=== PATIENT | female | born 1960 | race Caucasian/White ===

== ENCOUNTER 2018-05-11 23:23 | Emergency (ER) | payer OTHER ==
[~2018-05-11] VITALS: Ht 167.6 cm; Wt 61.2 kg
[2018-05-12 00:15] LABS: BILIRUBIN,URINE NEGATIVE (NEG); CLARITY,URINE CLEAR; COLOR,URINE YELLOW; NITRITE,URINE NEGATIVE (NEG); PH,URINE 5.5; PROTEIN,URINE NEGATIVE (NEG-TRACE); UROBILINOGEN,URINE 0.2 mg/dL (0.2 mg/dL)
[2018-05-12 00:22] LABS: BACTERIA,URINE FEW /HPF (0-FEW); RBC,URINE RARE /HPF (0-2); SQUAMOUS EPITHELIAL CELL,UR FEW /LPF
[2018-05-12 00:31] LABS: INFLUENZA A PATIENT NEGATIVE (NEGATIVE); INFLUENZA B PATIENT NEGATIVE (NEGATIVE)
[2018-05-12] MEDS ORDERED: KETOROLAC 15 MG/ML VIAL. IV ONE (01:15)
[2018-05-12] MEDS ORDERED: FAMOTIDINE 20 MG/2 ML VIAL IVP ONE (01:15)
[2018-05-12] MEDS ORDERED: ONDANSETRON PF 4 MG/2 ML VIAL. IV ONE (01:15)
[2018-05-12 01:19] LABS: BASO # 0.1 x10^3/uL (0.0-0.2); BASO % 1 % (0-3); EOS # 0.2 x10^3/uL (0.0-0.7); EOS % 2 % (0-3); HEMATOCRIT 40.7 % (36.0-47.0); HEMOGLOBIN 13.7 g/dL (12.0-15.5); LYMPH # 3.6 x10^3/uL (1.0-4.8); LYMPH % 34 % (24-48); MEAN CORPUSCULAR HEMOGLOBIN 32 pg (25-35); MEAN CORPUSCULAR HGB CONC 34 g/dL (31-37); MEAN CORPUSCULAR VOLUME 94 fL (79-100); MONO # 0.7 x10^3/uL (0.0-1.1); MONO % 7 % (0-9); NEUT % 57 % (31-73); PLATELET COUNT 258 x10^3/uL (140-400); RED BLOOD COUNT 4.34 x10^6/uL (3.50-5.40); RED CELL DISTRIBUTION WIDTH 14.1 % (11.5-14.5); WHITE BLOOD COUNT 10.6 x10^3/uL (4.0-11.0)
[2018-05-12 01:27] LABS: CALCIUM 9.4 mg/dL (8.5-10.1); CREATININE 0.6 mg/dL (0.6-1.0); GFR 102.7; POTASSIUM 4.3 mmol/L (3.5-5.1)
[2018-05-12 01:28] LABS: MONONUCLEOSIS PATIENT NEGATIVE (NEGATIVE)
[2018-05-12] MEDS ORDERED: IV NORMAL SALINE 1000ML BAG 1,000 ML IV ONE (01:30)
[2018-05-12 01:32] LABS: ALBUMIN 3.4 g/dL (3.4-5.0); ALBUMIN/GLOBULIN RATIO 0.9 (1.0-1.7); MAGNESIUM 2.2 mg/dL (1.8-2.4); TOTAL BILIRUBIN 0.2 mg/dL (0.2-1.0); TOTAL PROTEIN 7.4 g/dL (6.4-8.2)
[2018-05-12] MEDS ORDERED: CONTRAST GIVEN. MC PRN (01:45)
[2018-05-12 01:54] VITALS: BP 158/70
[2018-05-12] MEDS ORDERED: IOHEXOL 300 MG/ML 100ML VIAL. IV ONE (02:00)
--- NOTE | 2018-05-12 02:06 | RAD ---
CT SCAN OF THE ABDOMEN AND PELVIS WITH IV CONTRAST. History: Right upper quadrant pain Comparison:None. Procedure: Contiguous axial images of the abdomen and pelvis were performed after the administration of 75 cc of Omni 300 IV contrast and without oral contrast. CT Abdomen with contrast: Findings: Liver: Unremarkable Spleen: Unremarkable Pancreas: Unremarkable Adrenal Glands: Unremarkable Kidneys: Unremarkable There is no mass or lymphadenopathy. There is no free air. There is no free fluid. Impression: No acute findings. End Impression CT Pelvis with Contrast: Findings: The appendix isn't well seen. The urinary bladder appears normal. There is no free fluid. There is no lymphadenopathy. Impression: No acute findings. PQRS Compliance Statement: One or more of the following individualized dose reduction techniques were utilized for this examination: 1. Automated exposure control 2. Adjustment of the mA and/or kV according to patient size 3. Use of iterative reconstruction technique Electronically signed by: Pedro Coelho III, MD (05/12/2018 2:03 AM) [facility]
--- NOTE | 2018-05-12 02:24 | PHYS DOC ---
Past Medical History Past Medical History: COPD, High Cholesterol, Other Additional Past Medical Histor: emphysema Past Surgical History: Appendectomy, Oophorectomy Additional Past Surgical Histo: plastic, OVARIAN CYSTS Smoking: Cigarettes, 1 Pack Per Day Alcohol Use: None Drug Use: None Adult General Chief Complaint Chief Complaint: MULTIPLE COMPLAINTS HPI HPI Patient is a 57 year old female who presents complaining of a sore throat, body aches, generalized weakness, a headache, nonproductive cough, shortness of breath on exertion, and a fever for the past one week. Patient reports nonbloody , nonbilious vomiting for the past two days as well as a decreased appetite. Patient reports taking Carlyn [place] without relief. Patient states that she has not gotten out of bed much over the past one week which she thinks is making her symptoms worse. Patient reports a maximum temperature of 101. Patient states that she developed midsternal chest pain that radiated to the right side of her chest around five o'clock this evening. Patient states that the pain radiated to her right elbow and lasted about thirty seconds before it subsided. Patient received the influenza vaccine this year. Denies diarrhea. Review of Systems Review of Systems Constitutional: Denies weight loss and sweating. Eyes: Denies change in visual acuity, or eye pain. HENT: Denies ear drainage and nasal discharge. Respiratory: Reports cough and shortness of breath. Cardiovascular: Denies palpitations. Reports chest pain. GI: Denies hematemesis. Denies bloody stools. : Denies dysuria or hematuria. Musculoskeletal: Reports back pain. Denies joint pain. Integument: Denies rash or skin lesions. Neurologic: Denies focal weakness or sensory changes. Complete systems were reviewed and found to be within normal limits, except as documented in this note. Current Medications Current Medications Current Medications Medications (Trade) Dose Ordered Sig/Angelito Start Time Stop Time Status Last Admin Dose Admin Famotidine (Pepcid Vial) 20 mg 1X ONCE 05/12/18 01:15 05/12/18 01:16 DC 05/12/18 01:15 20 MG Info (CONTRAST GIVEN -- Rx MONITORING) 1 each PRN DAILY PRN 05/12/18 01:45 05/14/18 01:44 Iohexol (Omnipaque 300 Mg/ml) 75 ml 1X ONCE 05/12/18 02:00 05/12/18 02:01 DC 05/12/18 01:46 75 ML Ketorolac Tromethamine (Toradol 15mg Vial) 15 mg 1X ONCE 05/12/18 01:15 05/12/18 01:16 DC 05/12/18 01:15 15 MG Ondansetron HCl (Zofran) 4 mg 1X ONCE 05/12/18 01:15 05/12/18 01:16 DC 05/12/18 01:15 4 MG Sodium Chloride 1,000 ml @ 1,000 mls/hr 1X ONCE 05/12/18 01:30 05/12/18 02:29 DC 05/12/18 01:24 1,000 MLS/HR Allergies Allergies Allergies Coded Allergies Type Severity Reaction Last Updated Verified No Known Drug Allergies 03/07/13 No Physical Exam Physical Exam Constitutional: Well developed, well nourished, no acute distress, non-toxic appearance. HENT: Normocephalic, atraumatic, bilateral TMs visualized. Pharyngeal erythema without exudate. Right maxillary sinus tenderness on palpation. Eyes: PERRL, EOMI, conjunctiva normal. Neck: Normal range of motion, no tenderness, supple. Cardiovascular:Heart rate regular rhythm, no murmur. Lungs & Thorax: Decreased breath sounds bilaterally. No rhonchi, wheezing, or rales. Abdomen: Soft. Tenderness of right upper quadrant on palpation. No rebound or guarding. Skin: Warm, dry, no rash. Back: Bilateral lumbar paraspinal tenderness on palpation. No midline tenderness. Extremities: ROM intact, no edema. Tenderness of right lower extremity on palpation which is chronic, per patient. Neurologic: Alert and oriented X 3, normal motor function, normal sensory function, no focal deficits noted. Psychologic: Affect normal. Speech normal. Current Patient Data Vital Signs Vital Signs Date Time Temp Pulse Resp B/P (MAP) Pulse Ox O2 Delivery O2 Flow Rate FiO2 05/12/18 01:54 80 20 158/70 (99) 98 Room Air 05/11/18 23:46 97.8 97.8 Lab Values Laboratory Tests Test 05/11/18 23:50 05/12/18 01:12 Urine Collection Type Unknown Urine Color Yellow Urine Clarity Clear Urine pH 5.5 Urine Specific [place] <=1.005 Urine Protein Negative mg/dL (NEG-TRACE) Urine Glucose (UA) Negative mg/dL (NEG) Urine Ketones (Stick) Negative mg/dL (NEG) Urine Blood Small (NEG) Urine Nitrite Negative (NEG) Urine Bilirubin Negative (NEG) Urine Urobilinogen Dipstick 0.2 mg/dL (0.2 mg/dL) Urine Leukocyte Esterase Small (NEG) Urine RBC Rare /HPF (0-2) Urine WBC 5-10 /HPF (0-4) Urine Squamous Epithelial Cells Few /LPF Urine Bacteria Few /HPF (0-FEW) Influenza Type A Antigen Negative (NEGATIVE) Influenza Type B Antigen Negative (NEGATIVE) White Blood Count 10.6 x10^3/uL (4.0-11.0) Red Blood Count 4.34 x10^6/uL (3.50-5.40) Hemoglobin 13.7 g/dL (12.0-15.5) Hematocrit 40.7 % (36.0-47.0) Mean Corpuscular Volume 94 fL (79-100) Mean Corpuscular Hemoglobin 32 pg (25-35) Mean Corpuscular Hemoglobin Concent 34 g/dL (31-37) Red Cell Distribution Width 14.1 % (11.5-14.5) Platelet Count 258 x10^3/uL (140-400) Neutrophils (%) (Auto) 57 % (31-73) Lymphocytes (%) (Auto) 34 % (24-48) Monocytes (%) (Auto) 7 % (0-9) Eosinophils (%) (Auto) 2 % (0-3) Basophils (%) (Auto) 1 % (0-3) Neutrophils # (Auto) 6.0 x10^3uL (1.8-7.7) Lymphocytes # (Auto) 3.6 x10^3/uL (1.0-4.8) Monocytes # (Auto) 0.7 x10^3/uL (0.0-1.1) Eosinophils # (Auto) 0.2 x10^3/uL (0.0-0.7) Basophils # (Auto) 0.1 x10^3/uL (0.0-0.2) Sodium Level 137 mmol/L (136-145) Potassium Level 4.3 mmol/L (3.5-5.1) Chloride Level 102 mmol/L (98-107) Carbon Dioxide Level 25 mmol/L (21-32) Anion Gap 10 (6-14) Blood Urea Nitrogen 12 mg/dL (7-20) Creatinine 0.6 mg/dL (0.6-1.0) Estimated GFR (Cockcroft-Gault) 102.7 BUN/Creatinine Ratio 20 (6-20) Glucose Level 101 mg/dL (70-99) H Calcium Level 9.4 mg/dL (8.5-10.1) Magnesium Level 2.2 mg/dL (1.8-2.4) Total Bilirubin 0.2 mg/dL (0.2-1.0) Aspartate Amino Transferase (AST) 23 U/L (15-37) Alanine Aminotransferase (ALT) 23 U/L (14-59) Alkaline Phosphatase 66 U/L (46-116) Total Protein 7.4 g/dL (6.4-8.2) Albumin 3.4 g/dL (3.4-5.0) Albumin/Globulin Ratio 0.9 (1.0-1.7) L Lipase 156 U/L (73-393) Heterophil Agglutinins Negative (NEGATIVE) Laboratory Tests 05/12/18 01:12 Laboratory Tests 05/12/18 01:12 EKG EKG [] Radiology/Procedures Radiology/Procedures [] Impressions: PROCEDURE: CT ABD PELV W/ IV CONTRST ONLY CT SCAN OF THE ABDOMEN AND PELVIS WITH IV CONTRAST. History: Right upper quadrant pain Comparison:None. Procedure: Contiguous axial images of the abdomen and pelvis were performed after the administration of 75 cc of Omni 300 IV contrast and without oral contrast. CT Abdomen with contrast: Findings: Liver: Unremarkable Spleen: Unremarkable Pancreas: Unremarkable Adrenal Glands: Unremarkable Kidneys: Unremarkable There is no mass or lymphadenopathy. There is no free air. There is no free fluid. Impression: No acute findings. End Impression CT Pelvis with Contrast: Findings: The appendix isn't well seen. The urinary bladder appears normal. There is no free fluid. There is no lymphadenopathy. Impression: No acute findings. PQRS Compliance Statement: One or more of the following individualized dose reduction techniques were utilized for this examination: 1. Automated exposure control 2. Adjustment of the mA and/or kV according to patient size 3. Use of iterative reconstruction technique Electronically signed by: Pedro Coelho III, MD (05/12/2018 2:03 AM) [id number] Course & Med Decision Making Course & Med Decision Making Pertinent Labs and Imaging studies reviewed. (See chart for details) Patient presented to the ED with multiple complaints including a sore throat, fever, vomiting, body aches, generalized weakness, chest pain, shortness of breath, a headache. Dragon Disclaimer Dragon Disclaimer This electronic medical record was generated, in whole or in part, using a voice recognition dictation system. Departure Departure Impression: Primary Impression: Viral syndrome Additional Impressions: Pharyngitis Nausea & vomiting Abdominal pain Disposition: 01 HOME, SELF-CARE Condition: STABLE Referrals: LILLIE COPELAND MD (PCP) Patient Instructions: Nausea and Vomiting, [id number], Viral Syndrome, Viral and Bacterial Pharyngitis, [id number] Scripts Famotidine (PEPCID) 20 Mg Tablet 20 MG PO BID for 14 Days, #28 TAB Prov: CHAY DOYLE DO 05/12/18 Ondansetron (ONDANSETRON ODT) 4 Mg Tab.rapdis 1 TAB PO PRN Q6-8HRS for VOMITING, #16 TAB Prov: CHAY DOYLE DO 05/12/18 Problem Qualifiers Additional Impressions: Pharyngitis Pharyngitis/tonsillitis etiology: unspecified etiology Qualified Codes: J02.9 - Acute pharyngitis, unspecified Nausea & vomiting Vomiting type: unspecified Vomiting Intractability: non-intractable Qualified Codes: R11.2 - Nausea with vomiting, unspecified Abdominal pain Abdominal location: unspecified location Qualified Codes: R10.9 - Unspecified abdominal pain CHAY DOYLE DO May 12, 2018 02:23
[2018-05-12] MEDS ORDERED: FAMO-63 PO (03:04)
[2018-05-12] MEDS ORDERED: ONDA4TAB12 PO (03:04)
== END 2018-05-12 03:07 | disposition home or self-care (01) ==
LOC: ER 23:23
DX: B34.9 Viral infection, unspecified (principal); R11.2 Nausea with vomiting, unspecified; R10.11 Right upper quadrant pain; J44.9 Chronic obstructive pulmonary disease, unspecified; E78.00 Pure hypercholesterolemia, unspecified; F17.210 Nicotine dependence, cigarettes, uncomplicated; Z90.89 Acquired absence of other organs; Z90.721 Acquired absence of ovaries, unilateral
CPT/HCPCS: 36415; 74177; 80053; 81001; 83690; 83735; 85025; 86308; 87070; 87086; 87804; 87880; 96361; 96374; 96375; 99284; J1885; J2405; J3490; J7030; Q9967

== ENCOUNTER → 2018-06-02 | Outpatient (CLI) | payer OTHER ==
[2018-05-12 01:54] VITALS: BP 158/70
[~2018-06-02] MED LIST: FAMO-63 PO; ONDA4TAB12 PO
--- NOTE | 2018-06-02 16:31 | RAD ---
Clinical indications: Carotidynia. Left ear pain. Hypertension. History of smoking. Duplex sonography of the cervical portion of both carotid arteries was performed including color flow imaging and spectral waveform analysis with flow velocity measurement and lamb scale evaluation. Right side: Peak systolic flow velocity of the CCA is 72 cm/sec. Peak systolic flow velocity of the ICA is 113 cm/sec. Thus, the ICA/CCA ratio is 1.4. Peak end diastolic flow velocity of the ICA is 36 cm/sec. The peak systolic velocity of the ECA is 193 cm/sec. Left side: Peak systolic flow velocity of the CCA is 79 cm/sec. Peak systolic flow velocity of the ICA is 112 cm/sec. Thus, the ICA/CCA ratio is 1.4. Peak end diastolic flow velocity of the ICA is 42 cm/sec. Peak systolic flow velocity of the ECA is 106 cm/sec. There is a 50-69% stenosis within the right ECA. No significant stenosis of the right ICA is seen. Mild plaque formation is seen within the left ECA and left ICA which is less than 40%.. Antegrade vertebral flow is seen bilaterally. The measurements were made using the NASCET criteria. Impression: No significant plaque formation is seen within either ICA or carotid bulb.. There is a 50-69% stenosis within the right ECA. Electronically signed by: Nabor Quick MD (06/02/2018 4:28 PM) [place] [id number]
--- NOTE | 2018-06-02 17:09 | RAD ---
DATE: 06/02/2018 EXAM: DIGITAL SCREEN BILAT W/CAD HISTORY: Routine screening COMPARISON: 10/08/2013 and 03/12/2012 mammographic exams This study was interpreted with the benefit of Computerized Aided Detection (CAD). Breast Density: HETERO The breast parenchyma is heterogenously dense, which could reduce sensitivity of mammography. Breast parenchyma level C. FINDINGS: No masses, calcification or distortion of concern. IMPRESSION: Benign appearance. Stable. BI-RADS CATEGORY: 1 NEGATIVE RECOMMENDED FOLLOW-UP: 12M 12 MONTH FOLLOW-UP PQRS compliance statement: Patient information was entered into a reminder system with a target due date in one year for the next mammogram. Mammography is a sensitive method for finding small breast cancers, but it does not detect them all and is not a substitute for careful clinical examination. A negative mammogram does not negate a clinically suspicious finding and should not result in delay in biopsying a clinically suspicious abnormality. "Our facility is accredited by the [employer] Mammography Program."
== END | disposition home or self-care (01) ==
LOC: RAD 12:20
PROVIDERS: ATTEND Family Medicine
DX: Z12.31 Encounter for screening mammogram for malignant neoplasm of breast (principal); I65.21 Occlusion and stenosis of right carotid artery; G90.01 Carotid sinus syncope; I10 Essential (primary) hypertension; Z87.891 Personal history of nicotine dependence
CPT/HCPCS: 77067; 93880

== ENCOUNTER 2018-12-29 18:33 | Emergency (ER) | payer OTHER ==
[~2018-12-29] VITALS: Ht 167.6 cm; Wt 61.2 kg
--- NOTE | 2018-12-29 19:28 | PHYS DOC ---
Past Medical History Past Medical History: COPD, High Cholesterol, Other Additional Past Medical Histor: emphysema Past Surgical History: Appendectomy, Oophorectomy Additional Past Surgical Histo: plastic, OVARIAN CYSTS Alcohol Use: None Drug Use: None Adult General Chief Complaint Chief Complaint: SHORTNESS OF BREATH HPI HPI 58-year-old female presents to the emergency department with complaints of shortness of breath, congestion, productive cough 5-6 days. She states she's had fever as well as some sore throat. Shortness of breath is both at rest as well as with exertion. She is concerned she may have pneumonia. Patient does have a history of tobacco use. Patient denies any abdominal pain, nausea, vomiting, diarrhea, headache or visual changes. Review of Systems Review of Systems Constitutional: + fever Eyes: Denies change in visual acuity, redness, or eye pain [] HENT: + sore throat Respiratory: + cough/SOB Cardiovascular: No additional information not addressed in HPI [] GI: Denies abdominal pain, nausea, vomiting, bloody stools or diarrhea [] : Denies dysuria or hematuria [] Musculoskeletal: + back pain Integument: Denies rash or skin lesions [] Neurologic: Denies headache, focal weakness or sensory changes [] All other systems were reviewed and found to be within normal limits, except as documented in this note. Current Medications Current Medications Current Medications Medications (Trade) Dose Ordered Sig/Angelito Start Time Stop Time Status Last Admin Dose Admin Albuterol/ Ipratropium (Duoneb) 3 ml 1X ONCE 12/29/18 19:30 12/29/18 19:31 DC 12/29/18 19:32 3 ML Allergies Allergies Allergies Coded Allergies Type Severity Reaction Last Updated Verified No Known Drug Allergies 03/07/13 No Physical Exam Physical Exam Constitutional: Well developed, well nourished, mild distress 2/2 SOB, ill appearing non toxic [] HENT: Normocephalic, atraumatic, bilateral external ears normal, oropharynx moist, no oral exudates, nose normal. [] Eyes: PERRLA, EOMI, conjunctiva normal, no discharge. [] Neck: Normal range of motion, no tenderness, supple, no stridor. [] Cardiovascular: Heart rate regular rhythm, no murmur [] Lungs & Thorax: coarse bs, right > left Abdomen: Bowel sounds normal, soft, no tenderness, no masses, no pulsatile masses. [] Skin: Warm, dry, no erythema, no rash. [] Back: No tenderness, no CVA tenderness. [] Extremities: No tenderness, no edema. [] Neurologic: Alert and oriented X 3, no focal deficits noted. [] Psychologic: Affect normal, judgement normal, mood normal. [] Current Patient Data Vital Signs Vital Signs Date Time Temp Pulse Resp B/P (MAP) Pulse Ox O2 Delivery O2 Flow Rate FiO2 12/29/18 19:32 94 Room Air 12/29/18 19:09 98.0 80 26 149/81 (103) 98.0 Lab Values Laboratory Tests Test 12/29/18 20:00 12/29/18 20:26 White Blood Count 11.9 x10^3/uL (4.0-11.0) H Red Blood Count 4.54 x10^6/uL (3.50-5.40) Hemoglobin 14.2 g/dL (12.0-15.5) Hematocrit 42.1 % (36.0-47.0) Mean Corpuscular Volume 93 fL (79-100) Mean Corpuscular Hemoglobin 31 pg (25-35) Mean Corpuscular Hemoglobin Concent 34 g/dL (31-37) Red Cell Distribution Width 13.8 % (11.5-14.5) Platelet Count 241 x10^3/uL (140-400) Neutrophils (%) (Auto) 62 % (31-73) Lymphocytes (%) (Auto) 30 % (24-48) Monocytes (%) (Auto) 6 % (0-9) Eosinophils (%) (Auto) 1 % (0-3) Basophils (%) (Auto) 1 % (0-3) Neutrophils # (Auto) 7.3 x10^3/uL (1.8-7.7) Lymphocytes # (Auto) 3.6 x10^3/uL (1.0-4.8) Monocytes # (Auto) 0.8 x10^3/uL (0.0-1.1) Eosinophils # (Auto) 0.1 x10^3/uL (0.0-0.7) Basophils # (Auto) 0.1 x10^3/uL (0.0-0.2) D-Dimer (Lashanda) 0.35 ug/mlFEU (0.00-0.50) Sodium Level 138 mmol/L (136-145) Potassium Level 3.8 mmol/L (3.5-5.1) Chloride Level 99 mmol/L (98-107) Carbon Dioxide Level 29 mmol/L (21-32) Anion Gap 10 (6-14) Blood Urea Nitrogen 9 mg/dL (7-20) Creatinine 0.6 mg/dL (0.6-1.0) Estimated GFR (Cockcroft-Gault) 102.3 BUN/Creatinine Ratio 15 (6-20) Glucose Level 95 mg/dL (70-99) Lactic Acid Level 1.0 mmol/L (0.4-2.0) Calcium Level 9.4 mg/dL (8.5-10.1) Total Bilirubin 0.4 mg/dL (0.2-1.0) Aspartate Amino Transferase (AST) 21 U/L (15-37) Alanine Aminotransferase (ALT) 22 U/L (14-59) Alkaline Phosphatase 75 U/L (46-116) Troponin I Quantitative < 0.017 ng/mL (0.000-0.055) Total Protein 7.8 g/dL (6.4-8.2) Albumin 3.7 g/dL (3.4-5.0) Albumin/Globulin Ratio 0.9 (1.0-1.7) L Urine Collection Type Unknown Urine Color Yellow Urine Clarity Clear Urine pH 6.5 Urine Specific [place] <=1.005 Urine Protein Negative mg/dL (NEG-TRACE) Urine Glucose (UA) Negative mg/dL (NEG) Urine Ketones (Stick) Negative mg/dL (NEG) Urine Blood Trace (NEG) Urine Nitrite Negative (NEG) Urine Bilirubin Negative (NEG) Urine Urobilinogen Dipstick 0.2 mg/dL (0.2 mg/dL) Urine Leukocyte Esterase Large (NEG) Urine RBC 0 /HPF (0-2) Urine WBC 20-40 /HPF (0-4) Urine Squamous Epithelial Cells Few /LPF Urine Bacteria Few /HPF (0-FEW) Laboratory Tests 12/29/18 20:00 Laboratory Tests 12/29/18 20:00 EKG EKG EKG reviewed, normal sinus rhythm, normal axis, no evidence of acute ST elevation [place] appreciated. Nonurgent EKG interpretation time 1955[] Radiology/Procedures Radiology/Procedures [] Course & Med Decision Making Course & Med Decision Making Pertinent Labs and Imaging studies reviewed. (See chart for details) []58-year-old female presents to the emergency department with complaints of shortness of breath, congestion, productive cough 5-6 days. She states she's had fever as well as some sore throat. Shortness of breath is both at rest as well as with exertion. She is concerned she may have pneumonia. Patient does have a history of tobacco use. Patient denies any abdominal pain, nausea, vomiting, diarrhea, headache or visual changes. Imaging reviewed no evidence of acute consolidation appreciated. White blood cell count 11.9, lactic acid within normal limits. Urinalysis does reveal evidence of urinary tract infection Laboratory saturation 95-96%. Discussed plans for any like therapy, steroids, inhaler upon discharge with follow-up with primary care physician. Discussed with patient at the bedside regarding discharge and return precautions. Dragon Disclaimer Dragon Disclaimer This electronic medical record was generated, in whole or in part, using a voice recognition dictation system. Departure Departure Impression: Primary Impression: COPD exacerbation Disposition: 01 HOME, SELF-CARE Condition: IMPROVED Referrals: LILLIE COPELAND MD (PCP) Patient Instructions: Chronic Obstructive Pulmonary Disease Exacerbation, [id number] Additional Instructions: Recommend follow up with PCP 3 - 5 days Return to the ER with worsening symptoms, intractable pain, fever, altered mental status Tylenol/Motrin as needed for pain, fever Take antibiotics, prednisone, and inhaler as prescribed Scripts Methylprednisolone (MEDROL) 4 Mg Tab.ds.pk 1 PKG PO UD, #1 PKG Prov: GRETTA TERAN MD 12/29/18 Azithromycin (AZITHROMYCIN TABLET) 500 Mg Tablet 1 TAB PO DAILY for 5 Days, #5 TAB 0 Refills Prov: GRETTA TERAN MD 12/29/18 Albuterol Sulfate (VENTOLIN HFA INHALER) 18 Gm Hfa.aer.ad 2 PUFF INH QID for FOR ASTHMA, #1 INHALER 0 Refills Prov: GRETTA TERAN MD 12/29/18 GRETTA TERAN MD Dec 29, 2018 19:28
[2018-12-29] MEDS ORDERED: IPRATRPIUM/ALBUTEROL 0.5/2.5MG 3 ML NEBU. NEB ONE (19:30)
[2018-12-29 20:30] LABS: BASO # 0.1 x10^3/uL (0.0-0.2); BASO % 1 % (0-3); EOS # 0.1 x10^3/uL (0.0-0.7); EOS % 1 % (0-3); HEMATOCRIT 42.1 % (36.0-47.0); HEMOGLOBIN 14.2 g/dL (12.0-15.5); LYMPH # 3.6 x10^3/uL (1.0-4.8); LYMPH % 30 % (24-48); MEAN CORPUSCULAR HEMOGLOBIN 31 pg (25-35); MEAN CORPUSCULAR HGB CONC 34 g/dL (31-37); MEAN CORPUSCULAR VOLUME 93 fL (79-100); MONO # 0.8 x10^3/uL (0.0-1.1); MONO % 6 % (0-9); NEUT # 7.3 x10^3/uL (1.8-7.7); NEUT % 62 % (31-73); PLATELET COUNT 241 x10^3/uL (140-400); RED BLOOD COUNT 4.54 x10^6/uL (3.50-5.40); RED CELL DISTRIBUTION WIDTH 13.8 % (11.5-14.5); WHITE BLOOD COUNT 11.9 x10^3/uL (4.0-11.0)
[2018-12-29 20:39] LABS: BILIRUBIN,URINE NEGATIVE (NEG); CLARITY,URINE CLEAR; COLOR,URINE YELLOW; NITRITE,URINE NEGATIVE (NEG); PH,URINE 6.5; PROTEIN,URINE NEGATIVE (NEG-TRACE); UROBILINOGEN,URINE 0.2 mg/dL (0.2 mg/dL)
[2018-12-29 20:50] VITALS: BP 147/69
[2018-12-29 20:50] LABS: RBC,URINE 0 /HPF (0-2); WBC,URINE 20-40 /HPF (0-4)
[2018-12-29 20:51] LABS: CALCIUM 9.4 mg/dL (8.5-10.1); CREATININE 0.6 mg/dL (0.6-1.0); GFR 102.3; POTASSIUM 3.8 mmol/L (3.5-5.1)
[2018-12-29 20:51] LABS: BACTERIA,URINE FEW /HPF (0-FEW); SQUAMOUS EPITHELIAL CELL,UR FEW /LPF
[2018-12-29 21:04] LABS: ALBUMIN 3.7 g/dL (3.4-5.0); ALBUMIN/GLOBULIN RATIO 0.9 (1.0-1.7); TOTAL BILIRUBIN 0.4 mg/dL (0.2-1.0); TOTAL PROTEIN 7.8 g/dL (6.4-8.2)
--- NOTE | 2018-12-29 21:30 | RAD ---
CHEST PA LATERAL INDICATION: Dyspnea. COMPARISON STUDY: 11/09/2013. FINDINGS: Lungs: Normal lung volume. No pulmonary mass or consolidation. Calcified pulmonary granulomas. The tracheobronchial tree and hilar structures are normal. Pleura: No pleural effusion or pneumothorax. Heart and Mediastinum: The cardiomediastinal silhouette is normal. Atherosclerotic thoracic aorta. Bones and Soft Tissues: Degenerative changes of the spine. IMPRESSION: No consolidation. Electronically signed by: Dannie Rincon MD (12/29/2018 9:27 PM) [facility]
[2018-12-29] MEDS ORDERED: AZIT500T4 PO (21:38)
[2018-12-29] MEDS ORDERED: VENTOLIN HFA18 GM INH (21:38)
[2018-12-29] MEDS ORDERED: METH4TAB2 PO (21:38)
--- NOTE | 2018-12-30 05:52 | EKG ---
[facility] [address] [place] [address] Test Date: 2018-12-29 Test Time: 19:52:02 Pat Name: LAURA PRIDE Department: Room: Gender: Female Dial Maker: : [id number] Requested By: GRETTA TERAN Order Number: [id number] Reading MD: Chriss Delaney Measurements Intervals [place] Rate: 76 P: 60 GA: 140 QRS: 79 QRSD: 84 T: 66 QT: 378 QTc: 430 Interpretive Statements SINUS RHYTHM Electronically Signed On 01-04-2019 15:09:30 LEARNING DEVELOPER by Chriss Delaney
== END 2018-12-29 21:50 | disposition home or self-care (01) ==
LOC: ER 18:33
DX: J44.1 Chronic obstructive pulmonary disease with (acute) exacerbation (principal); E78.00 Pure hypercholesterolemia, unspecified
CPT/HCPCS: 36415; 71046; 80053; 81001; 83605; 84484; 85025; 85379; 87086; 93005; 94640; 99285; J7620

== ENCOUNTER 2019-02-28 14:08 | Emergency (ER) | payer OTHER ==
[~2019-02-28 14:08] MED LIST changes: +AZIT500T4 PO; +METH4TAB2 PO; +VENTOLIN HFA18 GM INH
[2019-02-28 14:18] VITALS: BP 174/81
[2019-02-28] MEDS ORDERED: HYDROcodone/APAP 5/325MG 1 TAB TABLET PO STA (14:25)
--- NOTE | 2019-02-28 14:33 | PHYS DOC ---
Past Medical History Past Medical History: COPD, High Cholesterol, Other Additional Past Medical Histor: emphysema Past Surgical History: Appendectomy, Oophorectomy Additional Past Surgical Histo: plastic, OVARIAN CYSTS Alcohol Use: None Drug Use: None Adult General Chief Complaint Chief Complaint: MECHANICAL FALL HPI HPI Patient is a 58 year old female who presents stating that she fell yesterday. The patient states that her dog and cat got in a fight and spilled the water bowl and slipped and fell on the end table. She rates her pain as 10 out of 10 in severity and sharp. The patient states that she's had having right leg, knee, hip pain. States she hit the left side of her head on the end table when this happened. The patient denies losing consciousness. Review of Systems Review of Systems Constitutional: Denies fever or chills [] Eyes: Denies change in visual acuity, redness, or eye pain [] HENT: Denies nasal congestion or sore throat [] Respiratory: Denies cough or shortness of breath [] Cardiovascular: No additional information not addressed in HPI [] GI: Denies abdominal pain, nausea, vomiting, bloody stools or diarrhea [] : Denies dysuria or hematuria [] Musculoskeletal: Reports back pain, and is tender to R hip, knee, and lower leg. Integument: Denies rash or skin lesions [] Neurologic: Denies headache, focal weakness or sensory changes [] Endocrine: Denies polyuria or polydipsia [] Complete systems were reviewed and found to be within normal limits, except as documented in this note. Current Medications Current Medications Current Medications Medications (Trade) Dose Ordered Sig/Angelito Start Time Stop Time Status Last Admin Dose Admin Acetaminophen/ Hydrocodone Bitart (Lortab 5/325) 1 tab 1X STAT 02/28/19 14:25 02/28/19 14:31 DC 02/28/19 14:46 1 TAB Allergies Allergies Allergies Coded Allergies Type Severity Reaction Last Updated Verified No Known Drug Allergies 03/07/13 No Physical Exam Physical Exam Constitutional: Well developed, well nourished, no acute distress, non-toxic appearance. [] HENT: Normocephalic, atraumatic, bilateral external ears normal, oropharynx moist, no oral exudates, nose normal. [] Eyes: PERRLA, EOMI, conjunctiva normal, no discharge. [] Back: Left lower back tenderness. Extremities: Tenderness to R lower extremity, knee, and hip. Mild edema to knee. ROM intact, unable to bear weight. Neurologic: Alert and oriented X 3, normal motor function, normal sensory function, no focal deficits noted. [] Psychologic: Affect normal, judgement normal, mood normal. [] Current Patient Data Vital Signs Vital Signs Date Time Temp Pulse Resp B/P (MAP) Pulse Ox O2 Delivery O2 Flow Rate FiO2 02/28/19 14:46 Room Air 02/28/19 14:18 97.6 81 14 174/81 (112) 96 97.6 EKG EKG [] Radiology/Procedures Radiology/Procedures [facility] [address] [place] [address] IMAGING REPORT Signed PATIENT: LAURA PRIDE JACCOUNT: [id number] : 1960 LOCATION: ER AGE: 58 SEX: F EXAM STATUS: REG ER ORD. PHYSICIAN: CHAY AMOS APRN REASON: fall PROCEDURE: KNEE RIGHT 3V Exam performed: X-ray right hip, right knee and right tibia-fibula. HISTORY: Pain, status post fall. DATE OF SERVICE: 02/28/2019. COMPARISON: None available FINDINGS: AP and lateral view of the right tibia fibula are obtained. Normal alignment of the ankle joint is preserved. There are early degenerative changes about the right knee joint. There is no acute fracture or dislocation. No soft tissue swelling or foreign body seen. AP, lateral and oblique views of the right knee are obtained. There is narrowing of the right patellofemoral joint as well as the lateral tibiofemoral joint. There is no acute fracture or dislocation. No soft tissue swelling is seen. There is a tiny suprapatellar joint effusion. AP view hip and AP and frog-leg lateral view of the right hip are obtained. Normal alignment of the hip joint is preserved. There is no acute fracture or dislocation. No soft tissue swelling or foreign body seen. Nonspecific bowel gas pattern. IMPRESSION: No acute abnormal activity seen in the right hip. Degenerative arthrosis involving the right knee joint without underlying acute bony abnormality. No acute abnormality seen in the right tibia-fibula. Electronically signed by: Yaneth Barr MD (02/28/2019 2:52 PM) [facility] DICTATED and SIGNED BY: YANETH BARR MD DATE: 02/28/19 7919 Course & Med Decision Making Course & Med Decision Making Pertinent Labs and Imaging studies reviewed. (See chart for details) Will get imaging and give Lortab. Imaging is unremarkable. Likely has contusion to leg. Will send home with crutches and muscle relaxers. Dragon Disclaimer Dragon Disclaimer This electronic medical record was generated, in whole or in part, using a voice recognition dictation system. Departure Departure Impression: Primary Impression: Fall Disposition: HOME, SELF-CARE Condition: STABLE Referrals: LILLIE COPELAND MD (PCP) Patient Instructions: Fall Prevention and Home Safety, RICE - Routine Care for Injuries Additional Instructions: Thank you for visiting [facility]. We appreciate you trusting us with your care. If any additional problems come up don't hesitate to return to visit us. Please follow up with your primary care provider so they can plan additional care if needed and know about the problem that you had. If symptoms worsen come back to the Emergency Department. Any concerning symptoms that start such as chest pain, shortness of air, weakness or numbness on one side of the body, running high fevers or any other concerning symptoms return to the ER. Scripts Orphenadrine Citrate (ORPHENADRINE CITRATE) 100 Mg Tablet.er 100 MG PO BID PRN for MUSCLE PAIN, #10 TAB.SR Please be aware that this medication can make you drowsy. Prov: CHAY AMOS APRN 02/28/19 Problem Qualifiers Primary Impression: Fall Encounter type: initial encounter Qualified Codes: W19.XXXA - Unspecified fall, initial encounter CHAY AMOS APRN Feb 28, 2019 14:33
--- NOTE | 2019-02-28 14:55 | RAD ---
Exam performed: X-ray right hip, right knee and right tibia-fibula. HISTORY: Pain, status post fall. DATE OF SERVICE: 02/28/2019. COMPARISON: None available FINDINGS: AP and lateral view of the right tibia fibula are obtained. Normal alignment of the ankle joint is preserved. There are early degenerative changes about the right knee joint. There is no acute fracture or dislocation. No soft tissue swelling or foreign body seen. AP, lateral and oblique views of the right knee are obtained. There is narrowing of the right patellofemoral joint as well as the lateral tibiofemoral joint. There is no acute fracture or dislocation. No soft tissue swelling is seen. There is a tiny suprapatellar joint effusion. AP view hip and AP and frog-leg lateral view of the right hip are obtained. Normal alignment of the hip joint is preserved. There is no acute fracture or dislocation. No soft tissue swelling or foreign body seen. Nonspecific bowel gas pattern. IMPRESSION: No acute abnormal activity seen in the right hip. Degenerative arthrosis involving the right knee joint without underlying acute bony abnormality. No acute abnormality seen in the right tibia-fibula. Electronically signed by: Yaneth Barr MD (02/28/2019 2:52 PM) [facility]
[2019-02-28] MEDS ORDERED: ORPH100T PO (15:04)
== END 2019-02-28 15:10 | disposition home or self-care (01) ==
LOC: ER 14:08
DX: M79.604 Pain in right leg (principal); M25.561 Pain in right knee; G89.11 Acute pain due to trauma; M25.551 Pain in right hip; E78.00 Pure hypercholesterolemia, unspecified; J44.9 Chronic obstructive pulmonary disease, unspecified; Z90.89 Acquired absence of other organs; Z90.722 Acquired absence of ovaries, bilateral; W01.190A Fall on same level from slipping, tripping and stumbling with subsequent striking against furniture, initial encounter; Y93.89 Activity, other specified; Y92.89 Other specified places as the place of occurrence of the external cause; Y99.8 Other external cause status
CPT/HCPCS: 73502; 73562; 73590; 99284

== ENCOUNTER → 2019-03-12 | Outpatient (CLI) | payer OTHER ==
[2019-02-28 14:18] VITALS: BP 174/81
[~2019-03-12] MED LIST changes: +ORPH100T PO
--- NOTE | 2019-03-12 13:05 | KCIC ---
EXAM: CT HEAD WITHOUT CONTRAST. HISTORY: Head injury, visual disturbance, fall. TECHNIQUE: Computed tomography of the head was performed without intravenous contrast. One or more of the following individualized dose reduction techniques were utilized for this examination: 1. Automated exposure control. 2. Adjustment of the mA and/or kV according to patient size. 3. Use of iterative reconstruction technique. COMPARISON: None. FINDINGS: There is no intracranial hemorrhage. Chang-white differentiation is preserved. The ventricles are normal in size and position. The visualized paranasal sinuses appear clear. The orbits are unremarkable. The temporal bones are unremarkable. The calvarium reveals no suspicious lesions. There are atherosclerotic calcifications of the internal carotid and vertebral arteries. IMPRESSION: 1. No acute intracranial findings. Electronically signed by: Jocelynn Jara MD (03/12/2019 1:02 PM) [facility]
== END | disposition home or self-care (01) ==
LOC: KCIC CT 10:51
PROVIDERS: ATTEND Family Medicine
DX: S09.90XA Unspecified injury of head, initial encounter (principal); I65.23 Occlusion and stenosis of bilateral carotid arteries; H53.9 Unspecified visual disturbance; W19.XXXA Unspecified fall, initial encounter; Y93.89 Activity, other specified; Y92.89 Other specified places as the place of occurrence of the external cause; Y99.8 Other external cause status
CPT/HCPCS: 70450